=== PATIENT | male | born 1980 | race African-American/Black ===

== ENCOUNTER 2018-09-25 14:39 | Emergency (ER) | payer SELFPAY ==
[~2018-09-25] VITALS: Ht 185.4 cm; Wt 85.0 kg
[2018-09-25 15:27] LABS: BASOPHILS % 0.9 % (0.0-2.0); EOSINOPHILS % 1.3 % (0.0-5.0); HEMATOCRIT. 38.9 % (42.0-52.0); HEMOGLOBIN. 12.7 g/dL (14.0-18.0); LYMPHOCYTES % 47.9 % (20.0-50.0); MEAN CORPUSCULAR HEMOGLOBIN 27.1 pg (28.0-32.0); MEAN CORPUSCULAR VOLUME 82.7 fL (80.0-94.0); MEAN PLATELET VOLUME 6.8 fl (7.4-10.4); MONOCYTES % 8.6 % (2.0-8.0); NEUTROPHILS % 41.3 % (40.0-76.0); PLATELET 185 x1000/uL (130-400); RED CELL DISTRIBUTION WIDTH 13.9 % (11.6-14.6)
[2018-09-25 15:32] LABS: CHLORIDE 107 mEq/L (98-107)
[2018-09-25 16:15] VITALS: BP 128/77
== END 2018-09-25 16:35 | disposition home or self-care (01) ==
LOC: ER 14:39
DX: K21.9 Gastro-esophageal reflux disease without esophagitis (principal)
CPT/HCPCS: 36415; 71045; 83880; 84484; 93005; 99284